=== PATIENT | female | born 2000 | race Caucasian/White ===

== ENCOUNTER 2024-04-26 12:30 | Inpatient (IN) ==
--- NOTE | 2024-04-26 13:07 | Emergency Department Note ---
Impression & Plan Depression with suicidal ideation, Anxiety ED Provider Note NAME: NILAM PACKER AGE: 24 SEX: F : 2000 ARRIVES VIA: Walk-In INFORMANT: Patient, the patient's mother ED PROVIDER(S): Juventino Gil DO CHIEF COMPLAINT: Mental health evaluation HPI: The patient is a 24-year-old female who presented to the emergency department for mental-health evaluation. The patient is currently 35 weeks by dates. She has had ultrasound as well as follow-up with [facility] [employer]. The patient has been having problems with anxiety depression and suicidal ideation. The patient cut her left arm with a piece of broken glass last evening. She presented to the emergency department for further evaluation. The patient denies having any drug or alcohol use. She states that she was arguing with her significant other and this is what prompted the injury. ROS: See above HPI for pertinent positives & negatives. A total of 10 systems reviewed and were otherwise negative. PAST MEDICAL HISTORY: See Below PAST SURGICAL HISTORY: See Below FAMILY HISTORY: See Below SOCIAL HISTORY: See Below HOME MEDICATIONS: See Below ALLERGIES: See Below VITALS: See Below PHYSICAL EXAMINATION: GENERAL: The patient is awake and alert. The patient is very tearful and anxious appearing. EYES: The conjunctivae are clear. The pupils are round and reactive. EARS, NOSE, MOUTH AND THROAT: The nose is without any evidence of any deformity. NECK: The neck is nontender and supple. RESPIRATORY: Normal respiratory effort is noted there is no evidence of wheezing rhonchi or rales CARDIOVASCULAR: Regular rate and rhythm noted there no murmurs rubs or gallops normal S1 normal S2. GASTROINTESTINAL: The abdomen is gravid in appearance with a fundal height well above the umbilicus. There is no tenderness guarding or rigidity. MUSCULOSKELETAL/EXTREMITIES: There is no evidence of gross deformity full range of motion is noted in the hips and shoulders. SKIN: There is no obvious evidence of any rash. There is a laceration on the left forearm. There are multiple small abrasions but 1 is full-thickness. There is no active bleeding. Wound dressing is in place. NEUROLOGIC: Patient is awake alert and oriented x3 strength is symmetric patellar reflexes are 2+ bilaterally PSYCH: The patient makes poor eye contact mostly evaluation. Her affect is flat. She is tearful. She is currently admitting to suicidal ideation. MEDICAL DECISION MAKING: The patient is a 24-year-old female who is currently 35 weeks who presented to the emergency department for an evaluation of mental health issues. The patient has been having problems with her significant other. Because of this she is having significant depression with suicidal ideation. The patient was tearful and anxious. She does appear to be in need of inpatient treatment. I discussed the patient's laboratory results with her. The patient was evaluated by the mental health case managers. She was then evaluated by the delegate from 3 S. She was felt to be a good candidate for inpatient management and was ultimately accepted on [facility]. for further inpatient treatment. The patient was agreeable this plan. I did sign the patient's 201. Triage Nursing notes reviewed. Prior medical records reviewed Vital Signs: reviewed and remarkable for no significant abnormalities Differential diagnosis: Mood disorder, infection, hypoglycemia, electrolyte abnormalities, cardiac sources, intracerebral event, toxicologic, trauma, neurologic, as well as other pathologies. ER treatment provided: See below Diagnostics interpreted by me: ECG: none Laboratory studies: As stated above and show below. Imaging studies: See below. Consultation(s): I discussed this case with the emergency department mental health case managers. Past Med/Surg History Problem List (Updated 04/26/24 @ 18:16 by Juventino Gil DO) Anxiety (Acute) Depression with suicidal ideation (Acute) Late care Unsure of last menstrual period as reason for ultrasound scan Encounter for supervision of normal intrauterine in primigravida, antepartum Encounter for anatomic survey Medical History Mood disorder Depression Surgical History No pertinent past surgical history Family History Grandfather (Maternal) Diabetes Heart disease Grandmother (Maternal) Diabetes Heart disease Denies family history of Ovarian cancer Breast cancer Colorectal cancer Social History Smoking Status: Never smoker Tobacco Type: E-cigarettes / Vaping Age Quit Using Tobacco: 22; Do You Dip or Chew Tobacco: No; Preferred Language: Serbian Communication Ability: Effective Weed Science Research Technician Required: No Beliefs That Will Affect Care: None marital status: Single marital status details: Anthony Infante ([phone] Current Living Situation: Significant Other Current Living Situation Comment: Lives with FOB and 2 reptiles current occupational status: employed current occupation: [employer] Feels Safe at Home: Yes Gender Identity: Female Assistive Devices: None Allergies Allergies Allergy/AdvReac Type Severity Reaction Status Date / Time No Known Allergies Allergy Verified 04/23/24 13:41 Home Meds Home Medications Medication Instructions Recorded Confirmed [id number] PO DAILY 01/09/24 04/23/24 [ Plus] Results & Data (ED) Vital Signs Vital Signs - 24 hr 04/26/24 12:31 04/26/24 12:35 04/26/24 14:22 Temperature 36.8 C Temperature Source Temporal Artery Scan Pulse Rate 110 H Pulse Rate [Right Finger] 100 H 92 H Pulse Rhythm [Right Finger] Regular Regular Pulse Strength [Right Finger] Normal Normal Respiratory Rate 18 18 18 Respiratory Effort / Characteristics Non-Labored Spontaneous Non-Labored Spontaneous Non-Labored Spontaneous Respiratory Depth Normal Normal Normal Respiratory Pattern Regular Regular Blood Pressure 148/90 H Blood Pressure [Right Arm] 113/72 121/74 Blood Pressure Mean 109 Blood Pressure Mean [Right Arm] 85 89 Blood Pressure Position [Right Arm] Sitting Sitting Pulse Oximetry 97 96 96 Oxygen Delivery Method Room Air Room Air Room Air Sepsis Recent Fever Within 48 Hours No Sepsis New/Unexplained Change in Mental Status N/A Sepsis Action Taken by Nursing No Action Required 04/26/24 15:55 Temperature Temperature Source Pulse Rate Pulse Rate [Right Finger] Pulse Rhythm [Right Finger] Pulse Strength [Right Finger] Respiratory Rate Respiratory Effort / Characteristics Respiratory Depth Respiratory Pattern Blood Pressure Blood Pressure [Right Arm] Blood Pressure Mean Blood Pressure Mean [Right Arm] Blood Pressure Position [Right Arm] Pulse Oximetry Oxygen Delivery Method Room Air Sepsis Recent Fever Within 48 Hours Sepsis New/Unexplained Change in Mental Status Sepsis Action Taken by [facility] Medications Current Medication List: was personally reviewed by me Laboratory Data Attestation: I reviewed the patient's lab results. 04/26/24 13:05 04/26/24 13:05 Lab Results 04/26/24 04/26/24 04/26/24 Range/Units 12:50 13:05 13:10 WBC 16.68 H (4.8-10.8) K/ul RBC 4.68 (4.20-5.40) M/uL Hgb 14.3 (12.0-16.0) g/dl Hct 41.5 (37.0-47.0) % MCV 88.7 (80.0-100.0) fL MCH 30.6 (25.0-34.0) pg MCHC 34.5 (32.0-36.0) g/dL RDW Std Deviation 41.1 (36.4-46.3) fL RDW Coeff of Immanuel 12.7 (11.5-14.5) % Plt Count 261 (130-400) K/uL MPV 11.2 (9.4-12.4) fL Immature Gran % (Auto) 0.8 % Neut % (Auto) 78.6 % Lymph % (Auto) 14.0 % [place] % (Auto) 5.8 % Eos % (Auto) 0.4 % Baso % (Auto) 0.4 % Neut # (Auto) 13.11 H (1.40-6.50) K/uL Lymph # (Auto) 2.33 (1.20-3.40) K/uL [place] # (Auto) 0.97 H (0.11-0.59) K/uL Eos # (Auto) 0.07 (0.00-0.50) K/uL Baso # (Auto) 0.07 (0.00-0.20) K/uL Immature Gran # (Auto) 0.13 (0.01-0.20) K/uL Sodium 136 (136-145) mmol/L Potassium 4.0 (3.5-5.1) mmol/L Chloride 107 (98-107) mmol/L Carbon Dioxide 19 L (21-32) mmol/L Anion Gap 10 (3-11) BUN 10 (6-23) mg/dl Creatinine 0.56 L (0.6-1.2) mg/dl Est Cr Clr Drug Dosing 149.1 ml/min Est GFR ( Amer) > 150.0 ml/min Est GFR (Non-Af Amer) 131.4 ml/min BUN/Creatinine Ratio 17.9 (10-20) Glucose 72 (70-99(Fasting)) mg/dl Calcium 9.4 (8.6-10.3) mg/dl Total Bilirubin 0.6 (0.2-1.0) mg/dl AST 15 (13-39) U/L ALT 11 (7-52) U/L Alkaline Phosphatase 144 H (34-104) U/L Total Protein 6.4 (6.0-8.3) gm/dl Albumin 3.7 (3.4-5.0) gm/dl Globulin 2.7 (2.5-4.0) gm/dl Albumin/Globulin Ratio 1.4 (0.9-2) TSH 1.156 (0.300-4.500) uIu/ml Urine Color Yellow Urine Appearance Clear (Clear) Urine pH 6.0 (4.5-7.5) Ur Specific [place] 1.020 (1.000-1.030) Urine Protein Negative (Negative) Urine Glucose (UA) Negative (Negative) Urine Ketones 3+ H (Negative) Urine Blood Negative (Negative) Urine Nitrite Negative (Negative) Urine Bilirubin Negative (Negative) Urine Urobilinogen Negative (Negative) Ur Leukocyte Esterase 2+ H (Negative) Urine WBC (Auto) 6-10 H (0-5) /hpf Urine RBC (Auto) 0-2 (0-2) /hpf U Hyaline Cast (Auto) 3-5 H (0-2) /lpf U Epithel Cells (Auto) 6-10 H (0-2) /hpf Urine Bacteria (Auto) 3+ H (None Seen) Salicylates < 3.0 L (3.0-30) mg/dl Urine Opiates Screen Neg (Neg) Ur Methadone, Qual Neg (Neg) Urine Fentanyl Screen Neg (Neg) Acetaminophen < 3 L (10-30) ug/ml Urine Barbiturates Neg (Neg) Ur Phencyclidine (PCP) Neg (Neg) U Amphetamin/Meth Scrn Neg (Neg) MDMA (Ecstasy) Screen Neg (Neg) U Benzodiazepines Scrn Neg (Neg) Ur Cocaine Metabolite Neg (Neg) U Marijuana (THC) Screen Neg (Neg) Ethyl Alcohol mg/dL < 10.0 (<10.0) mg/dl SARS-CoV-2, RNA, NAAT NEGATIVE (NEGATIVE) Administered Medications Discontinued Medications Cefdinir (Cefdinir 300 Mg Cap) 300 mg PO ONE STA; Protocol Stop: 04/26/24 15:30 Last Admin: 04/26/24 15:46 Dose: 300 mg Documented By: MMG Discharge Plan Visit Data Chief Complaint: Mental Health Evaluation Stated Complaint: MENTAL HEALTH EV ED Provider: Juventino Gil Discharge Problem: Depression with suicidal ideation, Anxiety Patient Disposition: Admitted As Inpatient Discharge Instructions Interventions: ED Discharge Assessment Last Done: 04/26/24 15:55
[2024-04-26 13:32] LABS: Basophils # (auto) 0.07 K/uL (0.00-0.20); Basophils % (auto) 0.4 %; Eosinophils # (auto) 0.07 K/uL (0.00-0.50); Eosinophils % (auto) 0.4 %; Hematocrit (blood only) 41.5 % (37.0-47.0); Hemoglobin 14.3 g/dl (12.0-16.0); Immature Granulocytes # (auto) 0.13 K/uL (0.01-0.20); Immature Granulocytes % (auto) 0.8 %; Lymphocytes # (auto) 2.33 K/uL (1.20-3.40); Mean Corpuscular Hemoglobin 30.6 pg (25.0-34.0); Mean Corpuscular Hgb Conc 34.5 g/dL (32.0-36.0); Mean Corpuscular Volume 88.7 fL (80.0-100.0); Mean Platelet Volume 11.2 fL (9.4-12.4); Monocytes # (auto) 0.97 K/uL (0.11-0.59); Monocytes % (auto) 5.8 %; Neutrophils # (auto) 13.11 K/uL (1.40-6.50); Neutrophils % (auto) 78.6 %; Platelet Count 261 K/uL (130-400); RDW Coefficient of Variation 12.7 % (11.5-14.5); RDW Standard Deviation 41.1 fL (36.4-46.3); Red Blood Count 4.68 M/uL (4.20-5.40); White Blood Count 16.68 K/ul (4.8-10.8)
[2024-04-26 13:55] LABS: Acetaminophen < 3 ug/ml (10-30); Salicylate < 3.0 mg/dl (3.0-30)
[2024-04-26 13:56] LABS: Alanine Aminotransferase 11 U/L (7-52); Albumin Globulin Ratio 1.4 (0.9-2); Albumin Level 3.7 gm/dl (3.4-5.0); Alkaline Phosphatase 144 U/L (34-104); Anion Gap 10 (3-11); Aspartate Aminotransferase 15 U/L (13-39); BUN Creatinine Ratio 17.9 (10-20); Bilirubin,Total 0.6 mg/dl (0.2-1.0); Blood Urea Nitrogen 10 mg/dl (6-23); Calcium 9.4 mg/dl (8.6-10.3); Carbon Dioxide 19 mmol/L (21-32); Chloride 107 mmol/L (98-107); Creatinine Clr Calc Pharmacy 149.1 ml/min; Est GFR (African American) > 150.0 ml/min; Est GFR (Non-African American) 131.4 ml/min; Globulin 2.7 gm/dl (2.5-4.0); Glucose 72 mg/dl (70-99(Fasting)); Sodium 136 mmol/L (136-145); Total Protein 6.4 gm/dl (6.0-8.3)
[2024-04-26 14:10] LABS: Thyroid Stimulating Hormone 1.156 uIu/ml (0.300-4.500)
[2024-04-26 14:12] LABS: Appearance Urine Clear (Clear); Bacteria Urine Automated 3+ (None Seen); Bilirubin Urine Negative (Negative); Blood Urine Negative (Negative); Color Urine Yellow; Glucose Urine UA Negative (Negative); Ketones Urine 3+ (Negative); Leukocyte Esterase Urine 2+ (Negative); Nitrite Urine Negative (Negative); Protein Urine Negative (Negative); RBC Urine Automated 0-2 /hpf (0-2); Urobilinogen Urine Negative (Negative)
[2024-04-26 14:22] LABS: Amphetamines+Metham, Urine Neg (Neg); Barbiturates, Urine Neg (Neg); Benzodiazepine, Urine Neg (Neg); Cocaine, Urine Neg (Neg); Fentanyl, Urine Neg (Neg); MDMA (Ecstacy), Urine Neg (Neg); Marijuana, Urine Neg (Neg); Methadone, Urine Neg (Neg); Opiate, Urine Neg (Neg); Phencyclidine, Urine Neg (Neg)
[2024-04-26] MEDS ORDERED: ACETAMINOPHEN 325 MG TAB PO PRN (15:34)
[2024-04-26] MEDS: CEFDINIR 300 MG CAP PO STA (15:46)
[2024-04-27 06:40] VITALS: RESP 16
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
[2024-04-27] MEDS: PRENATAL VITAMIN 1 TAB PO SCH (13:31)
[2024-04-28] MEDS: SERTRALINE HCL 50 MG TABLET PO SCH (12:34)
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
[2024-04-29 06:52] VITALS: O2SAT 97
--- NOTE | 2024-04-29 15:11 | Psychiatric Progress Note ---
Date of Service April 29, 2024 Impression / Recommendations Impression NILAM PACKER is a 24-year-old woman who currently lives in [place] with her significant other, has a history of PTSD, depression, anxiety, BPD, 35 weeks and was admitted on 04/26/24 16:41 on a 201 voluntary commitment for worsening depression, anxiety and self-harm with hopelessness. Patient is tolerating sertraline well with no noted side effects. She screens positively on the borderline personality screener and we explored specific symptoms. Patient was counseled on potential treatment strategies and the role medications have in her improvement. Concern for possible dissociation related to PTSD and cluster B symptomology. MNPR due to third trimester of with need to reduce risk for infection and promote quiet sleep environment and access to the bathroom throughout the night Overall, I spent a total of 40 minutes with this case including review of chart records, nursing report, review of lab work, direct evaluation of the patient at bedside, counseling the patient, multidisciplinary team meeting, orders, and documentation in the electronic health record. (1) Major depressive disorder affecting : (2) Post traumatic stress disorder (PTSD): (3) Borderline personality disorder: (4) Generalized anxiety disorder with panic attacks: (5) Deliberate self-cutting: (6) : Plan 04/29/2024: Continue medications and treatment plan. 04/28/2024: Start sertraline 25 mg daily. Administer Cross borderline personality screener and mood disorder questionnaire. 04/27/2024: The patient was admitted to the [facility] ([facility] mental health unit) on q15 min checks (behavioral with suicide precautions) for safety. The patient will participate in group, recreational, and milieu therapies and will be offered additional individual and family sessions as clinically appropriate. -Consider SSRI -Mood Disorder Questionnaire -Will contact OBGYN service about medication recommendations for possible me dication for UTI given elevated WBC and pending urine culture Inventory Assets Strengths: supportive relationships, willing to get treatment Needs: safety and stabilization, medication adjustment, additional coping skills, increased outpatient services Suicide Risk Level Suicide Risk Level: Moderate (q15 min suicide checks) (depression with hopelessness and self-harm but denies SI and feels safe in the hospital, feels able to ask for help) Suicide Risk Level Comments: Risk Factors Assessment Male: No : Yes Do You Have Access To A Gun?: No Health Problems: No Mental Health Diagnoses: Yes Substance Use Disorders: No Previous Attempt: Yes Family History of Suicide: No Previous Psychiatric Hospitalization: No Hopelessness: Yes Protective Factors Assessment Responsible for Young Children: Yes () Employed: Yes ([employer]) Stable Relationships: Yes (but current conflict with significant other) Supportive Family: Yes Interval History Identifying Information NILAM PACKER is a 24-year-old woman who currently lives in [place] with her significant other, has a history of PTSD, depression, anxiety, BPD, 35 weeks and was admitted on 04/26/24 16:41 on a 201 voluntary commitment for worsening depression, anxiety and self-harm with hopelessness. Chief Complaint "ok". Review of Systems Sleep Information Total Hours of Sleep: 8 Sleep Comments: Observed awake a couple of times until she changed beds. Meal Information Percent Meal Consumed - Breakfast: 80 Percent Meal Consumed - Lunch: 90 Percent Meal Consumed - Dinner: 75 Subjective Subjective Patient was seen & assessed and interval progress reviewed with treatment team nursing and social work Patient engaging in self care. Patient reports some difficulty sleeping due to the bed. Reports tolerating Zoloft well and denies side effects. We discussed the screening instrument for borderline personality disorder and she reports having troubled relationships with lots of arguments, deliberately hurting self, impulsivity issues, extreme moodiness, feelings of anger, feeling as if things around her were unreal, feeling chronically empty, feeling she has no identity, and making desperate attempts to avoid feeling abandoned. Reports during high stress times she feels like she is a third person looking at her self. Unable to clarify on what particular circumstances this happens but usually involves relationship stressors. She often questions about how others perceive her and is worried about what they think. Reports earlier in her life she would often push people away if things were going well however this is improved over time. She denies suicidal ideation. Shows concern for her boyfriend and his wellbeing. Physical Exam Mental Examination Appearance: Well Groomed Eye Contact: Direct Eye Contact Motor Behavior: Unremarkable Speech: Normal Mood: Anxious Affect: Constricted Thought Process: Intact Insight: Fair Judgement: Poor Vital Signs (Past 24 Hours) Last Vital Signs Temp 36.6 C 04/29/24 06:51 Pulse 90 04/29/24 06:51 Resp 16 04/29/24 06:51 BP 111/68 04/29/24 06:51 Pulse Ox 97 04/29/24 06:51 O2 Del Method Room Air 04/29/24 06:51 Results & Data ([facility]) Current Inpatient Medications Current Inpatient Medications: Current Inpatient Medications Acetaminophen (Acetaminophen 325 Mg Tab) 650 mg PO Q4H PRN PRN Reason: Headache or Minor Fever Stop: 05/26/24 15:33 Prenat Multivit/[place]/Iron/Folic Ac ( Vitamin 1 Tab) 1 tab PO QAM OMARI Stop: 05/27/24 12:29 Last Admin: 04/29/24 08:32 Dose: 1 tab Sertraline HCl (Sertraline Hcl 50 Mg Tablet) 25 mg PO QAM OMARI Stop: 05/28/24 12:14 Last Admin: 04/29/24 08:32 Dose: 25 mg Mental Health & Subst Abuse Tx Psychiatrist Name of Psychiatrist: ALYSIA Torres) Psychiatrist's Date Of Appointment With Psychiatric Provider: 05/04/24Tuesday Time of Appointment with Psychiatrist: 1:30pm Therapist Name of Therapist: [facility] (on waitlist) Therapist's Post Discharge Appointments Primary Care Physician Name Of Family Doctor/PCP: Naz Dodd (new referral PCP) Primary Care Date of Future Appointment with PCP: 06/12/2024Tuesday Time of Appointment with PCP: 2:00pm (arrive at 1:30pm) Provider Appointment Comment: New patient packet will be sent to your home; please bring it to appt.
[2024-04-30 04:11] VITALS: PULSE 85; TEMP 97
[2024-04-30 09:39] VITALS: BP 144/84
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
== END 2024-04-30 10:30 | disposition home or self-care (01) | DRG 832 ==
LOC: ED 12:30 → 3S 16:41

== ENCOUNTER 2024-05-30 23:02 | Inpatient (IN) ==
[2024-05-31] MEDS ORDERED: LIDOCAINE 1% LOCAL 20 ML VIAL INFIL PRN (04:03)
[2024-05-31] MEDS: LACTATED RINGER'S 1,000 ML IV PRN (04:19)
[2024-05-31 04:57] LABS: Hematocrit (blood only) 37.2 % (37.0-47.0); Hemoglobin 12.8 g/dl (12.0-16.0); Mean Corpuscular Hemoglobin 30.5 pg (25.0-34.0); Mean Corpuscular Hgb Conc 34.4 g/dL (32.0-36.0); Mean Corpuscular Volume 88.6 fL (80.0-100.0); Mean Platelet Volume 11.3 fL (9.4-12.4); Platelet Count 238 K/uL (130-400); RDW Coefficient of Variation 12.5 % (11.5-14.5); RDW Standard Deviation 40.2 fL (36.4-46.3)
[2024-05-31] MEDS ORDERED: NALOXONE HCL 1 MG in SODIUM CHLORIDE 0.9% 1,000 ML IV PRN (05:05)
[2024-05-31] MEDS ORDERED: NALOXONE HCL 0.4 MG/1 ML VIAL/CARP IV PRN (05:05)
[2024-05-31] MEDS ORDERED: diphenhydrAMINE 50 MG/ML VIAL IV PRN (05:05)
[2024-05-31] MEDS ORDERED: BUPIVACAINE 0.25% PF 30 ML VIAL EPI PRN (05:05)
[2024-05-31] MEDS ORDERED: LIDOCAINE 2% MPF LOCAL 5 ML VIAL EPI PRN (05:05)
[2024-05-31] MEDS ORDERED: SODIUM CHLORIDE 0.9% PF INJ 10 ML VIAL EPI PRN (05:05)
[2024-05-31] MEDS ORDERED: fentaNYL citrate PF 100 MCG/2 ML VIAL EPI PRN (05:05)
[2024-05-31] MEDS ORDERED: ROPIVACAINE 0.5% PF 5 MG/ML 20 ML VIAL EPI PRN (05:05)
[2024-05-31] MEDS ORDERED: ePHEDrine sulfate 50 MG/ML AMP IV PRN (05:05)
[2024-05-31] MEDS ORDERED: NALBUPHINE HCL INJ 10 MG/ML AMP IV PRN (05:05)
--- NOTE | 2024-05-31 05:05 | Anesthesiology Consultation ---
Date of Service May 31, 2024 Assessment & Plan Chart Review Chart Review: Acceptable Risk for Labor Epidural Consults Requested none History Height/Weight Height: 5 ft Weight: 70.307 kg Allergies Allergy/AdvReac Type Severity Reaction Status Date / Time No Known Allergies Allergy Verified 05/28/24 11:16 Medications Home Medications Medication Instructions Recorded Confirmed Last Taken [id number] 1 tab PO DAILY 01/09/24 05/30/24 05/30/24 [ Plus] sertraline 50 mg tablet 50 mg PO QAM #30 tabs 04/30/24 05/30/24 05/30/24 Active Medications Generic Name Dose Route Start Last Admin Trade Name Freq PRN Reason Stop Dose Admin Lactated Ringer's 1,000 mls @ 125 mls/hr 05/31/24 04:03 05/31/24 04:19 Lr IV 06/02/24 04:02 999 mls/hr .Q8H PRN Administration L&D Protocol Protocol Past Medical History Medical History Deliberate self-cutting Mood disorder Depression Past Family History Family History Grandfather (Maternal) Diabetes Heart disease Grandmother (Maternal) Diabetes Heart disease Denies family history of Ovarian cancer Breast cancer Colorectal cancer Past Surgical History Surgical History No pertinent past surgical history Social History Smoking Status: Former smoker Smoking cigarettes per day: prior to Do You Dip or Chew Tobacco: No Hx Alcohol Use: No Hx Substance Use: No Physical Exam Vital Signs Last Vital Signs Temp 36.7 C 05/31/24 04:10 Pulse 61 05/31/24 04:10 Resp 18 05/31/24 04:10 BP 131/75 05/31/24 04:10 Testing Laboratory Results 05/31/24 04:35
--- NOTE | 2024-05-31 05:11 | History & Physical Report ---
Date of Service May 31, 2024 Assessment & Plan (1) Encounter for supervision of normal intrauterine in primigravida, antepartum: Plan: 24 yo G1 at 39 4/7 wga presents in labor VSS Fetus cat 1 Labor - augment prn GBS neg desires epidural Admission and Anticipated Discharge Date Admission Date: May 31, 2024 History of Present Illness Chief Complaint: ctx Primary Care Provider: NO PCP 24 yo G1 at 39 4/7 wga presents w/ ctx increasing in frequency and intensity. Was 2-3cm and now 3-4cm. +FM; denies LOF,VB PNI: Late to care rubella equiv Past packager machine hx irreg cycles denies hx stis Allergies Allergy/AdvReac Type Severity Reaction Status Date / Time No Known Allergies Allergy Verified 05/28/24 11:16 Home Medications Medication Instructions Recorded Confirmed Type [id number]-[id number]-FA 1 tab PO DAILY 01/09/24 05/30/24 History [ Plus] sertraline 50 mg tablet 50 mg PO QAM #30 tabs 04/30/24 05/30/24 Rx Patient History Medical History Deliberate self-cutting Mood disorder Depression Surgical History No pertinent past surgical history Family History Grandfather (Maternal) Diabetes Heart disease Grandmother (Maternal) Diabetes Heart disease Denies family history of Ovarian cancer Breast cancer Colorectal cancer Social History Smoking Status: Former smoker Tobacco Type: E-cigarettes / Vaping Age Quit Using Tobacco: 22; Cigarettes Per Day: prior to ; Do You Dip or Chew Tobacco: No; Hx Alcohol Use: No Hx Substance Use: No Preferred Language: Irish Communication Ability: Effective Millinery Department Manager Required: No Beliefs That Will Affect Care: None marital status: Single marital status details: Anthony Infante [phone] Current Living Situation: Parent and Family Current Living Situation Comment: mom and sister current occupational status: employed current occupation: [employer] Feels Safe at Home: Yes Safety Concerns: Feels Safe At This Time Gender Identity: Female Assistive Devices: None Physical Exam Genitourinary: OB Exam Monitor Tracing: + external FHT monitor used, + external uterine monitor used (q4-5) and + category I (120/mod/+accel/-decel) Results & Data Vital Signs (Past 12 Hours) Vital Signs Temp Pulse Resp BP 05/31/24 04:10 98.1 F 61 18 131/75 05/30/24 23:26 67 122/68 05/30/24 23:21 97.7 F 18 Laboratory Results OB Labs: Blood Type A Positive 01/16/24 Antibody Screen NEGATIVE 01/16/24 Hgb 14.3 g/dl (12.0-16.0) 04/26/24 Hct 41.5 % (37.0-47.0) 04/26/24 MCV 88.7 fL (80.0-100.0) 04/26/24 Plt Count 261 K/uL (130-400) 04/26/24 Rubella IgG Antibody Equivocal (Immune) L 01/16/24 RPR Nonreactive (Nonreactive) 01/16/24 Hep Bs Antigen NON-REACTIVE (NON-REACTIVE) 01/16/24 Hepatitis C Ab (EIA) NON-REACTIVE (NON-REACTIVE) 01/16/24 HIV (1&2) Ag & Ab Conf NON-REACTIVE (NON-REACTIVE) 01/16/24 Glucose 1 Hr 50 gm 107 mg/dl (70-130) 03/12/24 Maternal Serum AFP 45.9 ng/mL 01/16/24 OB Optional Labs: Chlamydia trachomatis RNA Not Detected (NotDetected) 01/16/24 Neisseria gonorrhoeae RNA Not Detected (NotDetected) 01/16/24 Thyroid Stimulating Hormone (TSH) 1.156 uIu/ml (0.300-4.500) 04/26/24 Alpha Fetoprotein Triple Screen SEE NOTE 01/16/24 Coding Level of Care Code None Diagnoses Encounter for supervision of normal intrauterine in primigravida, antepartum Z34.00
[2024-05-31] MEDS: fentANYL 2 MCG/ML BUPIVacaine 0.125%-NSS 100ML BAG ONE (05:44)
[2024-05-31] MEDS: ePHEDrine sulfate 50 MG/ML AMP ONE (05:45)
[2024-05-31] MEDS: fentaNYL citrate PF 100 MCG/2 ML VIAL ONE (05:45)
[2024-05-31] MEDS: BUPIVACAINE 0.25% PF 30 ML VIAL ONE (05:45)
[2024-05-31] MEDS: SODIUM CHLORIDE 0.9% PF INJ 10 ML VIAL ONE (05:46)
[2024-05-31] MEDS: LIDOCAINE 2%/EPINEPHRINE 1:200,000 20 ML PF ONE (05:47)
[2024-05-31] MEDS: fentANYL 2 MCG/ML BUPIVacaine 0.125%-NSS 100ML BAG EPI PRN (13:35)
[2024-05-31] MEDS: fentaNYL citrate PF 100 MCG/2 ML VIAL EPI STA (14:14)
[2024-05-31] MEDS: LIDOCAINE 2%/EPINEPHRINE 1:200,000 20 ML PF EPI STA (14:14)
[2024-05-31] MEDS: BUPIVACAINE 0.25% PF 30 ML VIAL EPI STA (14:14)
[2024-05-31] MEDS: SODIUM CHLORIDE 0.9% PF INJ 10 ML VIAL EPI STA (14:15)
[2024-05-31] MEDS: OXYTOCIN 30 UNITS/NSS 30 UNITS/500 ML BAG IV PRN (14:35)
[2024-06-01] MEDS: OXYTOCIN 30 UNITS/NSS 30 UNITS/500 ML BAG IV PRN (00:07)
[2024-06-01] MEDS ORDERED: OXYTOCIN 30 UNITS/NSS 30 UNITS/500 ML BAG IV PRN (00:22)
[2024-06-01] MEDS ORDERED: bisacodyL 10 MG SUPP PR PRN (00:22)
[2024-06-01] MEDS ORDERED: HYDROCORTISONE ACETATE 25 MG SUPP PR PRN (00:22)
--- NOTE | 2024-06-01 00:26 | Delivery Summary ---
Vaginal Delivery Summary Date of Service June 01, 2024 Vaginal Delivery Summary and 1st Degree LAC Progressed to 10 cm dilated 100% effaced +2 station pushed over intact perineum with epidural anesthesia and delivered a viable male with weight and Apgars pending. Had the delivered without difficulty and shoulders and body quickly followed. There is noted to be a loose nuchal cord which was delivered through. was noted be vigorous soon after delivery and a 1 minute delayed cord clamping was initiated. Cord was then double clamped and cut. Attention was turned deliver the placenta was delivered intact three- vessel cord gentle cord traction. Inspection perineum vagina cervix there is noted to be a left labial laceration and a first-degree vaginal laceration. Lacerations repaired with 3-0 Vicryl in continuous running stitch. Needle sponge and instrument counts were correct at the completion of the case both mother and stable in the immediate post delivery. No complications noted and blood loss per QBL. [facility] Vaginal Delivery Charge Delivery Type Details: and 1st Degree LAC
[2024-06-01] MEDS: IBUPROFEN 600 MG TAB PO PRN (02:21)
[2024-06-01] MEDS: BENZOCAINE 20% SPRY 85 APPLN/85 GM CAN EXT PRN (02:22)
[2024-06-01] MEDS: FERROUS SULFATE 325 MG TAB PO SCH (08:13)
[2024-06-01] MEDS: PRENATAL VITAMIN 1 TAB PO SCH (08:13)
[2024-06-01] MEDS: DOCUSATE SODIUM 100 MG CAP PO SCH (08:13)
--- NOTE | 2024-06-01 08:49 | Obstetrical Progress Note ---
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 Routine care Subjective 9 hours Post robina No active complains Normal diet Feeding well; no breast issues Moderate Lochia Pain : Mild Ambulation+ Pee+ Gas+ Review of Systems Review of Systems: As per HPI Physical Exam Physical Exam: General: Alert and oriented. No acute distress. CV: Regular rate and rhythm. No murmurs. Respiratory: CTA bilaterally. No rhonchi, wheezes, or crackles. No increased work of breathing. Abdomen: Positive bowel sounds. Soft, nontender, non distended. Uterus: Fundus firm and palpable suprapubic, well contracted Results & Data Vital Signs (Past 12 Hours) Vital Signs Temp Pulse Pulse Resp BP BP Pulse Ox 06/01/24 07:25 36.6 C 81 16 99/62 L 97 06/01/24 05:40 36.6 C 06/01/24 03:10 36.4 C L 90 16 110/67 96 06/01/24 01:47 99 H 107/58 L 06/01/24 01:32 105 H 110/57 L 06/01/24 01:17 18 06/01/24 01:17 90 109/57 L 06/01/24 01:02 89 114/62 06/01/24 00:47 18 06/01/24 00:47 85 116/59 L 06/01/24 00:32 36.7 C 18 06/01/24 00:32 78 114/65 06/01/24 00:17 106 H 114/66 06/01/24 00:08 101 H 96 06/01/24 00:03 101 H 97 06/01/24 00:02 18 06/01/24 00:02 107 H 112/67 94 05/31/24 23:58 98 H 96 05/31/24 23:53 99 H 96 05/31/24 23:48 101 H 97 05/31/24 23:44 95 H 127/57 L 05/31/24 23:43 98 H 99 05/31/24 23:38 91 H 98 05/31/24 23:35 106 H 121/59 L 91 05/31/24 23:33 97 H 97 05/31/24 23:28 82 97 05/31/24 23:23 96 H 97 05/31/24 23:20 107 H 143/63 H 05/31/24 23:19 18 05/31/24 23:19 18 05/31/24 23:18 80 99 05/31/24 23:13 115 H 99 05/31/24 23:08 72 98 05/31/24 23:05 72 134/72 05/31/24 23:03 81 100 05/31/24 23:00 20 05/31/24 23:00 20 05/31/24 22:58 79 99 05/31/24 22:53 86 98 05/31/24 22:51 80 136/74 05/31/24 22:48 102 H 98 05/31/24 22:47 20 05/31/24 22:47 38.0 C H 20 05/31/24 22:43 103 H 100 05/31/24 22:38 91 H 97 05/31/24 22:36 86 122/71 05/31/24 22:33 87 98 05/31/24 22:30 20 05/31/24 22:30 20 05/31/24 22:28 81 96 05/31/24 22:23 94 H 97 05/31/24 22:20 83 125/68 05/31/24 22:18 71 99 05/31/24 22:13 77 97 05/31/24 22:08 72 98 05/31/24 22:06 74 127/70 05/31/24 22:03 74 99 05/31/24 22:00 18 05/31/24 22:00 18 05/31/24 21:58 90 99 05/31/24 21:53 105 H 100 05/31/24 21:51 83 93 05/31/24 21:50 127/61 05/31/24 21:48 85 97 05/31/24 21:43 91 H 99 05/31/24 21:38 72 97 05/31/24 21:35 69 121/59 L 05/31/24 21:33 85 99 05/31/24 21:30 18 05/31/24 21:30 18 05/31/24 21:28 73 99 05/31/24 21:23 75 100 05/31/24 21:21 77 124/64 05/31/24 21:18 85 100 05/31/24 21:13 70 98 05/31/24 21:08 74 99 05/31/24 21:06 71 118/64 05/31/24 21:03 75 99 05/31/24 21:00 18 05/31/24 21:00 36.7 C 18 05/31/24 20:58 75 98 05/31/24 20:53 92 H 99 05/31/24 20:51 100 H 117/78 05/31/24 20:48 85 100 O2 Del Method 06/01/24 07:25 Room Air 06/01/24 05:40 06/01/24 03:10 Room Air 06/01/24 01:47 06/01/24 01:32 06/01/24 01:17 06/01/24 01:17 06/01/24 01:02 06/01/24 00:47 06/01/24 00:47 06/01/24 00:32 06/01/24 00:32 06/01/24 00:17 06/01/24 00:08 06/01/24 00:03 06/01/24 00:02 06/01/24 00:02 05/31/24 23:58 05/31/24 23:53 05/31/24 23:48 05/31/24 23:44 05/31/24 23:43 05/31/24 23:38 05/31/24 23:35 05/31/24 23:33 05/31/24 23:28 05/31/24 23:23 05/31/24 23:20 05/31/24 23:19 05/31/24 23:19 05/31/24 23:18 05/31/24 23:13 05/31/24 23:08 05/31/24 23:05 05/31/24 23:03 05/31/24 23:00 05/31/24 23:00 05/31/24 22:58 05/31/24 22:53 05/31/24 22:51 05/31/24 22:48 05/31/24 22:47 05/31/24 22:47 05/31/24 22:43 05/31/24 22:38 05/31/24 22:36 05/31/24 22:33 05/31/24 22:30 05/31/24 22:30 05/31/24 22:28 05/31/24 22:23 05/31/24 22:20 05/31/24 22:18 05/31/24 22:13 05/31/24 22:08 05/31/24 22:06 05/31/24 22:03 05/31/24 22:00 05/31/24 22:00 05/31/24 21:58 05/31/24 21:53 05/31/24 21:51 05/31/24 21:50 05/31/24 21:48 05/31/24 21:43 05/31/24 21:38 05/31/24 21:35 05/31/24 21:33 05/31/24 21:30 05/31/24 21:30 05/31/24 21:28 05/31/24 21:23 05/31/24 21:21 05/31/24 21:18 05/31/24 21:13 05/31/24 21:08 05/31/24 21:06 05/31/24 21:03 05/31/24 21:00 05/31/24 21:00 05/31/24 20:58 05/31/24 20:53 05/31/24 20:51 05/31/24 20:48 Resident Activity Tracking Resident Involvement: Resident Care Provided Care Provided: OB Delivery
--- NOTE | 2024-06-01 09:05 | Anesthesia Procedure Note ---
Date of Service June 01, 2024 Anesthesia Post Epidural Note Vital Signs Vital Signs: Temp Pulse Resp BP Pulse Ox O2 Del Method 36.6 C 81 16 99/62 L 97 Room Air 06/01/24 07:06/01/24 07:06/01/24 07:06/01/24 07:06/01/24 07:06/01/24 07:25 Pain Intensity Perineal: Pain Intensity: 5 Notes Mental Status: alert / awake / arousable and participated in evaluation Nausea / Vomiting: adequately controlled Pain: adequately controlled Airway Patency, RR, SpO2: stable & adequate BP & HR: stable & adequate Hydration State: stable & adequate Neuraxial Anesthesia: was administered and sensory block is resolving Anesthetic Complications: no major complications apparent and Pt Satisfied with anesthetic care Epidural: Removed without complications and With tip intact
--- NOTE | 2024-06-01 09:05 | Anesthesiology Progress Note ---
Date of Service June 01, 2024 Anesthesia Post Procedure Vital Signs Vital Signs: Temp Pulse Pulse Resp BP BP Pulse Ox 06/01/24 07:25 36.6 C 81 16 99/62 L 97 06/01/24 05:40 36.6 C 06/01/24 03:10 36.4 C L 90 16 110/67 96 06/01/24 01:47 99 H 107/58 L 06/01/24 01:32 105 H 110/57 L 06/01/24 01:17 18 06/01/24 01:17 90 109/57 L 06/01/24 01:02 89 114/62 06/01/24 00:47 18 06/01/24 00:47 85 116/59 L 06/01/24 00:32 36.7 C 18 06/01/24 00:32 78 114/65 06/01/24 00:17 106 H 114/66 06/01/24 00:08 101 H 96 06/01/24 00:03 101 H 97 06/01/24 00:02 18 06/01/24 00:02 107 H 112/67 94 05/31/24 23:58 98 H 96 05/31/24 23:53 99 H 96 05/31/24 23:48 101 H 97 05/31/24 23:44 95 H 127/57 L 05/31/24 23:43 98 H 99 05/31/24 23:38 91 H 98 05/31/24 23:35 106 H 121/59 L 91 05/31/24 23:33 97 H 97 05/31/24 23:28 82 97 05/31/24 23:23 96 H 97 05/31/24 23:20 107 H 143/63 H 05/31/24 23:19 18 05/31/24 23:19 18 05/31/24 23:18 80 99 05/31/24 23:13 115 H 99 05/31/24 23:08 72 98 05/31/24 23:05 72 134/72 05/31/24 23:03 81 100 05/31/24 23:00 20 05/31/24 23:00 20 05/31/24 22:58 79 99 05/31/24 22:53 86 98 05/31/24 22:51 80 136/74 05/31/24 22:48 102 H 98 05/31/24 22:47 20 05/31/24 22:47 38.0 C H 20 05/31/24 22:43 103 H 100 05/31/24 22:38 91 H 97 05/31/24 22:36 86 122/71 05/31/24 22:33 87 98 05/31/24 22:30 20 05/31/24 22:30 20 05/31/24 22:28 81 96 05/31/24 22:23 94 H 97 05/31/24 22:20 83 125/68 05/31/24 22:18 71 99 05/31/24 22:13 77 97 05/31/24 22:08 72 98 05/31/24 22:06 74 127/70 05/31/24 22:03 74 99 05/31/24 22:00 18 05/31/24 22:00 18 05/31/24 21:58 90 99 05/31/24 21:53 105 H 100 05/31/24 21:51 83 93 05/31/24 21:50 127/61 05/31/24 21:48 85 97 05/31/24 21:43 91 H 99 05/31/24 21:38 72 97 05/31/24 21:35 69 121/59 L 05/31/24 21:33 85 99 05/31/24 21:30 18 05/31/24 21:30 18 05/31/24 21:28 73 99 05/31/24 21:23 75 100 05/31/24 21:21 77 124/64 05/31/24 21:18 85 100 05/31/24 21:13 70 98 05/31/24 21:08 74 99 05/31/24 21:06 71 118/64 05/31/24 21:03 75 99 05/31/24 21:00 18 05/31/24 21:00 36.7 C 18 05/31/24 20:58 75 98 05/31/24 20:53 92 H 99 05/31/24 20:51 100 H 117/78 05/31/24 20:48 85 100 05/31/24 20:43 78 99 05/31/24 20:38 90 99 05/31/24 20:35 71 126/75 05/31/24 20:33 72 99 05/31/24 20:30 18 05/31/24 20:30 18 05/31/24 20:28 85 99 05/31/24 20:23 78 99 05/31/24 20:20 76 121/73 05/31/24 20:18 76 99 05/31/24 20:13 82 98 05/31/24 20:08 82 98 05/31/24 20:07 84 125/70 05/31/24 20:03 80 97 05/31/24 20:00 18 05/31/24 20:00 18 05/31/24 19:58 85 98 05/31/24 19:53 78 98 05/31/24 19:51 77 123/78 05/31/24 19:48 73 98 05/31/24 19:43 68 98 05/31/24 19:38 67 96 05/31/24 19:36 64 108/58 L 05/31/24 19:33 65 97 05/31/24 19:30 18 05/31/24 19:30 18 05/31/24 19:28 68 98 05/31/24 19:23 66 97 05/31/24 19:20 77 106/59 L 92 05/31/24 19:18 75 97 05/31/24 19:13 75 97 05/31/24 19:08 85 96 05/31/24 19:05 36.6 C 64 101/52 L 05/31/24 19:03 67 95 05/31/24 19:02 68 94 05/31/24 18:58 73 95 05/31/24 18:56 70 94 05/31/24 18:53 72 95 05/31/24 18:51 64 05/31/24 18:51 68 98/52 L 94 05/31/24 18:48 68 93 05/31/24 18:44 72 94 05/31/24 18:43 76 95 05/31/24 18:38 69 96 05/31/24 18:35 62 102/56 L 05/31/24 18:33 78 96 05/31/24 18:28 68 96 05/31/24 18:23 64 96 05/31/24 18:20 70 115/63 05/31/24 18:18 77 97 05/31/24 18:13 91 H 97 05/31/24 18:08 92 H 95 05/31/24 18:05 75 108/60 05/31/24 18:03 84 95 05/31/24 18:01 72 94 05/31/24 17:58 71 95 05/31/24 17:53 71 95 05/31/24 17:51 72 112/64 05/31/24 17:48 72 95 05/31/24 17:43 74 96 05/31/24 17:38 80 97 05/31/24 17:35 80 20 111/61 05/31/24 17:33 74 97 05/31/24 17:28 74 97 05/31/24 17:23 90 97 05/31/24 17:21 81 114/62 05/31/24 17:18 87 97 05/31/24 17:13 80 96 05/31/24 17:08 81 96 05/31/24 17:05 37.2 C 75 20 105/59 L 05/31/24 17:03 62 96 05/31/24 16:58 68 95 05/31/24 16:53 69 96 05/31/24 16:50 76 99/50 L 94 05/31/24 16:48 64 96 05/31/24 16:43 77 96 05/31/24 16:38 73 96 05/31/24 16:36 76 110/59 L 05/31/24 16:33 68 97 05/31/24 16:28 70 96 05/31/24 16:23 86 97 05/31/24 16:20 71 105/57 L 05/31/24 16:18 77 96 05/31/24 16:13 69 96 05/31/24 16:08 69 97 05/31/24 16:06 68 100/56 L 05/31/24 16:03 78 96 05/31/24 16:00 20 05/31/24 16:00 20 05/31/24 15:58 81 96 05/31/24 15:53 70 96 05/31/24 15:50 64 92/54 L 94 05/31/24 15:48 74 96 05/31/24 15:43 71 96 05/31/24 15:38 80 96 05/31/24 15:36 77 116/66 05/31/24 15:33 79 96 05/31/24 15:28 73 96 05/31/24 15:23 91 H 96 05/31/24 15:20 90 109/60 05/31/24 15:18 100 H 97 05/31/24 15:13 95 H 97 05/31/24 15:08 90 96 05/31/24 15:05 36.4 C L 103 H 20 115/65 05/31/24 15:03 90 96 05/31/24 14:58 98 H 97 05/31/24 14:53 89 96 05/31/24 14:50 92 H 109/59 L 05/31/24 14:48 82 96 05/31/24 14:43 75 96 05/31/24 14:38 98 H 97 05/31/24 14:35 85 118/70 05/31/24 14:33 75 98 05/31/24 14:28 96 H 97 05/31/24 14:23 81 98 05/31/24 14:21 99 H 20 111/67 05/31/24 14:18 95 H 98 05/31/24 14:13 81 97 05/31/24 14:11 36.7 C 20 05/31/24 14:08 90 96 05/31/24 14:05 94 H 123/59 L 05/31/24 14:03 77 98 05/31/24 13:58 71 100 05/31/24 13:53 70 98 05/31/24 13:50 57 L 109/60 05/31/24 13:48 59 L 97 05/31/24 13:43 67 97 05/31/24 13:38 58 L 99 05/31/24 13:35 36.7 C 55 L 20 110/61 05/31/24 13:33 53 L 98 05/31/24 13:28 58 L 98 05/31/24 13:23 60 98 05/31/24 13:20 63 109/61 05/31/24 13:18 80 97 05/31/24 13:13 65 97 05/31/24 13:08 76 96 05/31/24 13:06 65 108/57 L 05/31/24 13:04 71 94 05/31/24 13:03 76 96 05/31/24 12:58 72 96 05/31/24 12:53 69 97 05/31/24 12:50 36.6 C 72 20 89/64 L 05/31/24 12:48 70 97 05/31/24 12:43 71 96 05/31/24 12:38 77 96 05/31/24 12:36 67 116/60 05/31/24 12:35 94 H 93 05/31/24 12:33 83 96 05/31/24 12:28 102 H 97 05/31/24 12:23 105 H 96 05/31/24 12:21 102 H 20 117/68 05/31/24 12:20 102 H 93 05/31/24 12:18 92 H 96 05/31/24 12:13 92 H 96 05/31/24 12:08 82 96 05/31/24 12:05 90 109/59 L 05/31/24 12:03 90 95 05/31/24 11:58 90 96 05/31/24 11:53 94 H 96 05/31/24 11:50 85 113/56 L 05/31/24 11:48 91 H 96 05/31/24 11:43 81 96 05/31/24 11:38 90 96 05/31/24 11:36 83 118/60 94 05/31/24 11:33 81 96 05/31/24 11:28 94 H 96 05/31/24 11:23 83 96 05/31/24 11:20 88 119/72 05/31/24 11:18 79 96 05/31/24 11:13 95 H 96 05/31/24 11:08 75 96 05/31/24 11:07 73 122/69 93 05/31/24 11:03 94 H 97 05/31/24 11:00 20 05/31/24 11:00 36.6 C 20 05/31/24 10:58 74 96 05/31/24 10:53 85 97 05/31/24 10:52 74 120/64 05/31/24 10:48 83 97 05/31/24 10:43 80 97 05/31/24 10:38 63 96 05/31/24 10:36 65 106/55 L 05/31/24 10:33 65 97 05/31/24 10:28 68 97 05/31/24 10:23 61 98 05/31/24 10:21 70 109/60 05/31/24 10:18 65 97 05/31/24 10:13 66 97 05/31/24 10:08 75 95 09/19/24 10:05 73 115/59 L 05/31/24 10:03 75 95 05/31/24 09:58 71 96 05/31/24 09:53 69 96 05/31/24 09:50 68 110/58 L 05/31/24 09:48 74 96 05/31/24 09:43 71 96 05/31/24 09:38 73 96 05/31/24 09:35 81 106/57 L 05/31/24 09:33 68 96 05/31/24 09:28 66 96 05/31/24 09:23 94 H 97 05/31/24 09:20 72 20 108/58 L 05/31/24 09:18 81 95 05/31/24 09:13 75 95 05/31/24 09:09 72 94 05/31/24 09:08 71 95 05/31/24 09:06 69 108/58 L O2 Del Method 06/01/24 07:25 Room Air 06/01/24 05:40 06/01/24 03:10 Room Air 06/01/24 01:47 06/01/24 01:32 06/01/24 01:17 06/01/24 01:17 06/01/24 01:02 06/01/24 00:47 06/01/24 00:47 06/01/24 00:32 06/01/24 00:32 06/01/24 00:17 06/01/24 00:08 06/01/24 00:03 06/01/24 00:02 06/01/24 00:02 05/31/24 23:58 05/31/24 23:53 05/31/24 23:48 05/31/24 23:44 05/31/24 23:43 05/31/24 23:38 05/31/24 23:35 05/31/24 23:33 05/31/24 23:28 05/31/24 23:23 05/31/24 23:20 05/31/24 23:19 05/31/24 23:19 05/31/24 23:18 05/31/24 23:13 05/31/24 23:08 05/31/24 23:05 05/31/24 23:03 05/31/24 23:00 05/31/24 23:00 05/31/24 22:58 05/31/24 22:53 05/31/24 22:51 05/31/24 22:48 05/31/24 22:47 05/31/24 22:47 05/31/24 22:43 05/31/24 22:38 05/31/24 22:36 05/31/24 22:33 05/31/24 22:30 05/31/24 22:30 05/31/24 22:28 05/31/24 22:23 05/31/24 22:20 05/31/24 22:18 05/31/24 22:13 05/31/24 22:08 05/31/24 22:06 05/31/24 22:03 05/31/24 22:00 05/31/24 22:00 05/31/24 21:58 05/31/24 21:53 05/31/24 21:51 05/31/24 21:50 05/31/24 21:48 05/31/24 21:43 05/31/24 21:38 05/31/24 21:35 05/31/24 21:33 05/31/24 21:30 05/31/24 21:30 05/31/24 21:28 05/31/24 21:23 05/31/24 21:21 05/31/24 21:18 05/31/24 21:13 05/31/24 21:08 05/31/24 21:06 05/31/24 21:03 05/31/24 21:00 05/31/24 21:00 05/31/24 20:58 05/31/24 20:53 05/31/24 20:51 05/31/24 20:48 05/31/24 20:43 05/31/24 20:38 05/31/24 20:35 05/31/24 20:33 05/31/24 20:30 05/31/24 20:30 05/31/24 20:28 05/31/24 20:23 05/31/24 20:20 05/31/24 20:18 05/31/24 20:13 05/31/24 20:08 05/31/24 20:07 05/31/24 20:03 05/31/24 20:00 05/31/24 20:00 05/31/24 19:58 05/31/24 19:53 05/31/24 19:51 05/31/24 19:48 05/31/24 19:43 05/31/24 19:38 05/31/24 19:36 05/31/24 19:33 05/31/24 19:30 05/31/24 19:30 05/31/24 19:28 05/31/24 19:23 05/31/24 19:20 05/31/24 19:18 05/31/24 19:13 05/31/24 19:08 05/31/24 19:05 05/31/24 19:03 05/31/24 19:02 05/31/24 18:58 05/31/24 18:56 05/31/24 18:53 05/31/24 18:51 05/31/24 18:51 05/31/24 18:48 05/31/24 18:44 05/31/24 18:43 05/31/24 18:38 05/31/24 18:35 05/31/24 18:33 05/31/24 18:28 05/31/24 18:23 05/31/24 18:20 05/31/24 18:18 05/31/24 18:13 05/31/24 18:08 05/31/24 18:05 05/31/24 18:03 05/31/24 18:01 05/31/24 17:58 05/31/24 17:53 05/31/24 17:51 05/31/24 17:48 05/31/24 17:43 05/31/24 17:38 05/31/24 17:35 05/31/24 17:33 05/31/24 17:28 05/31/24 17:23 05/31/24 17:21 05/31/24 17:18 05/31/24 17:13 05/31/24 17:08 05/31/24 17:05 05/31/24 17:03 05/31/24 16:58 05/31/24 16:53 05/31/24 16:50 05/31/24 16:48 05/31/24 16:43 05/31/24 16:38 05/31/24 16:36 05/31/24 16:33 05/31/24 16:28 05/31/24 16:23 05/31/24 16:20 05/31/24 16:18 05/31/24 16:13 05/31/24 16:08 05/31/24 16:06 05/31/24 16:03 05/31/24 16:00 05/31/24 16:00 05/31/24 15:58 05/31/24 15:53 05/31/24 15:50 05/31/24 15:48 05/31/24 15:43 05/31/24 15:38 05/31/24 15:36 05/31/24 15:33 05/31/24 15:28 05/31/24 15:23 05/31/24 15:20 05/31/24 15:18 05/31/24 15:13 05/31/24 15:08 05/31/24 15:05 05/31/24 15:03 05/31/24 14:58 05/31/24 14:53 05/31/24 14:50 05/31/24 14:48 05/31/24 14:43 05/31/24 14:38 05/31/24 14:35 05/31/24 14:33 05/31/24 14:28 05/31/24 14:23 05/31/24 14:21 05/31/24 14:18 05/31/24 14:13 05/31/24 14:11 05/31/24 14:08 05/31/24 14:05 05/31/24 14:03 05/31/24 13:58 05/31/24 13:53 05/31/24 13:50 05/31/24 13:48 05/31/24 13:43 05/31/24 13:38 05/31/24 13:35 05/31/24 13:33 05/31/24 13:28 05/31/24 13:23 05/31/24 13:20 05/31/24 13:18 05/31/24 13:13 05/31/24 13:08 05/31/24 13:06 05/31/24 13:04 05/31/24 13:03 05/31/24 12:58 05/31/24 12:53 05/31/24 12:50 05/31/24 12:48 05/31/24 12:43 05/31/24 12:38 05/31/24 12:36 05/31/24 12:35 05/31/24 12:33 05/31/24 12:28 05/31/24 12:23 05/31/24 12:21 05/31/24 12:20 05/31/24 12:18 05/31/24 12:13 05/31/24 12:08 05/31/24 12:05 05/31/24 12:03 05/31/24 11:58 05/31/24 11:53 05/31/24 11:50 05/31/24 11:48 05/31/24 11:43 05/31/24 11:38 05/31/24 11:36 05/31/24 11:33 05/31/24 11:28 05/31/24 11:23 05/31/24 11:20 05/31/24 11:18 05/31/24 11:13 05/31/24 11:08 05/31/24 11:07 05/31/24 11:03 05/31/24 11:00 05/31/24 11:00 05/31/24 10:58 05/31/24 10:53 05/31/24 10:52 05/31/24 10:48 05/31/24 10:43 05/31/24 10:38 05/31/24 10:36 05/31/24 10:33 05/31/24 10:28 05/31/24 10:23 05/31/24 10:21 05/31/24 10:18 05/31/24 10:13 05/31/24 10:08 05/31/24 10:05 05/31/24 10:03 05/31/24 09:58 05/31/24 09:53 05/31/24 09:50 05/31/24 09:48 05/31/24 09:43 05/31/24 09:38 05/31/24 09:35 05/31/24 09:33 05/31/24 09:28 05/31/24 09:23 05/31/24 09:20 05/31/24 09:18 05/31/24 09:13 05/31/24 09:09 05/31/24 09:08 05/31/24 09:06 Pain Intensity Perineal: Pain Intensity: 5 Notes Mental Status: alert / awake / arousable Patient Amnestic to Procedure: Yes Nausea / Vomiting: adequately controlled Pain: adequately controlled Airway Patency, RR, SpO2: stable & adequate BP & HR: stable & adequate Hydration State: stable & adequate Neuraxial Anesthesia: was administered and sensory block resolved Anesthetic Complications: no major complications apparent
[2024-06-01] MEDS: SERTRALINE HCL 50 MG TABLET PO SCH (09:46)
[2024-06-01] MEDS: ACETAMINOPHEN 325 MG TAB PO PRN (17:23)
[2024-06-01] MEDS: DIPHTHER/TETAN/PERTUS Vaccine (Tdap, Adol/Adult) 0.5mL IM ONE (18:27)
[2024-06-01 23:03] VITALS: O2SAT 99
--- NOTE | 2024-06-02 06:58 | Obstetrical Progress Note ---
Date of Service June 02, 2024 Assessment & Plan (1) Normal delivery: Plan: 2nd Post following in G1 at 39 weeks POG. No active complains. Normal diet Feeding well; no breast issues Moderate Lochia Pain : Mild Ambulation+ Pee+ Gas+ Plan: Discharge today Admission and Anticipated Discharge Date Admission Date: May 31, 2024 Supervising Physician Co-Signing Physician Notes Resident Physician Supervision Note: Discussed with Dr. Cox and agree with findings and plan as documented in the note. Any exceptions or clarifications are listed here: [ ] Documented By: Yolis Hagan MD, FACOG Subjective 2nd Post foll at 39 weeks POG. No active complains Normal diet Feeding well; no breast issues Moderate Lochia Pain : Mild Ambulation+ Pee+ Gas+ Review of Systems Review of Systems: As per HPI Physical Exam Physical Exam: General: Alert and oriented. No acute distress. CV: Regular rate and rhythm. No murmurs. Respiratory: CTA bilaterally. No rhonchi, wheezes, or crackles. No increased work of breathing. Abdomen: Positive bowel sounds. Soft, nontender, non distended. Uterus: Fundus firm and palpable suprapubic, well contracted Results & Data Vital Signs (Past 12 Hours) Vital Signs Temp Pulse Resp BP Pulse Ox O2 Del Method 06/01/24 23:01 36.7 C 76 16 105/64 99 Room Air 06/01/24 18:57 36.8 C 70 16 112/72 98 Room Air Resident Activity Tracking Resident Involvement: Resident Care Provided Care Provided: OB Delivery
[2024-06-02 07:17] LABS: Hematocrit (blood only) 29.6 % (37.0-47.0); Hemoglobin 9.6 g/dl (12.0-16.0); Mean Corpuscular Hemoglobin 29.9 pg (25.0-34.0); Mean Corpuscular Hgb Conc 32.4 g/dL (32.0-36.0); Mean Corpuscular Volume 92.2 fL (80.0-100.0); Mean Platelet Volume 11.1 fL (9.4-12.4); Platelet Count 206 K/uL (130-400); RDW Coefficient of Variation 12.9 % (11.5-14.5); Red Blood Count 3.21 M/uL (4.20-5.40); White Blood Count 15.46 K/ul (4.8-10.8)
[2024-06-02 11:24] VITALS: BP 118/76; PULSE 79; RESP 18; TEMP 97.5
[2024-06-02] MEDS: MEASLES, MUMPS & RUBELLA VIRUS VACCINE (MMR) 0.5ML VIAL SQ ONE (12:03)
[2024-06-02] MEDS ORDERED: bisacodyL 5 MG TABEC PO SCH (20:00)
== END 2024-06-02 14:15 | disposition home or self-care (01) | DRG 807 ==
LOC: OPB 23:02 → 4S1 23:03 → 4E2 06-01 02:26